=== PATIENT | male | born 1945 | race Caucasian/White ===

== ENCOUNTER 2016-07-03 05:34 | Day surgery (SDC) | payer OTHER ==
--- NOTE | 2016-07-02 13:27 | PREOPHP ---
DATE OF ADMISSION: 07/03/2016 HISTORY OF PRESENT ILLNESS: This 71-year-old patient is admitted for elective cataract surgery of t he left eye. The patient has had decreased vision in the left eye for approximately 1 year. The pa donnell denies prior history of eye disease or injury. He has sustained a stroke in 2007. The patien t is also being treated for hypercholesterolemia, hypertension, gout, and memory problems. CURRENT MEDICATIONS: Include: 1. Aspirin (discontinued 1 week prior to surgery. 2. Pravastatin. 3. Metoprolol. 4. Allopurinol. 5. Amlodipine. 6. Namenda. 7. Aricept. 8. Seroquel. ALLERGIES: THERE ARE NO KNOWN ALLERGIES. PHYSICAL EXAMINATION: Visual acuity with best correction is 20/60 in the right eye and hand motions vision in the left eye. Slit lamp examination reveals a moderate cataract in the right eye and a m ature cataract in the left eye. Applanation tonometry is 15 mmHg in both eyes. Examination of the retina is within normal limits in the right eye and is not visualized in the left eye due to the mat ure cataract. DIAGNOSIS: Mature cataract, left eye. PLAN: Cataract extraction with lens implant, left eye. The risks and alternatives to the surgery h ave been discussed with the patient and family as well as the inability to prognosticate visual outc ome due to the inability to visualize the retina in the left eye. The patient understands this and desires to proceed with surgery in hopes of improving visual acuity leading to a greater ability to perform activities of daily living. Dictated By: MARI TATUM/BILL Conf#: [id number] DID#: [id number]
[2016-07-02 13:45] VITALS: BMI 29.5
[2016-07-03] VITALS (8 sets, daily range): BP systolic 132–160; BP diastolic 75–95; PULSE 60–72; RESP 16–18; Ht 162.6 cm; Wt 81.6 kg
[~2016-07-03] VITALS: Ht 162.6 cm; Wt 81.6 kg
[2016-07-03] MEDS ORDERED: CYCLOPENTOLATE/PHENYLEPH 2 ML OPH OPER SCH (06:00)
[2016-07-03] MEDS ORDERED: DICLOFENAC 0.1% 2.5 ML OPH OPER SCH (06:00)
[2016-07-03] MEDS ORDERED: CIPROFLOXACIN 0.3% 2.5 ML OPH OPER SCH (06:00)
[2016-07-03] MEDS ORDERED: TROPICAMIDE 1% 2 ML OPH OPER SCH (06:00)
[2016-07-03] MEDS ORDERED: MEMA1CAP3 PO (07:29)
[2016-07-03] MEDS ORDERED: PRAV40TA76 PO (07:30)
[2016-07-03] MEDS ORDERED: LISI40TA9 PO (07:30)
[2016-07-03] MEDS ORDERED: AMLO-147 PO (07:30)
[2016-07-03] MEDS ORDERED: QUET25TA33 PO (07:31)
[2016-07-03] MEDS ORDERED: ALLO300T2 PO (07:31)
[2016-07-03] MEDS ORDERED: LIDOCAINE 100 MG SYRINGE ONE (07:47)
[2016-07-03] MEDS ORDERED: PROPOFOL 20 ML ONE (07:47)
[2016-07-03] MEDS ORDERED: ONDANSETRON 4 MG INJ IV PRN (08:00)
[2016-07-03] MEDS ORDERED: hydrALAzine 20 MG INJ IV PRN (08:00)
[2016-07-03] MEDS ORDERED: LABETALOL HCL 20MG INJ IV PRN (08:00)
[2016-07-03] MEDS ORDERED: MEPERIDINE 25 MG INJ IV PRN (08:00)
[2016-07-03] MEDS ORDERED: ATROPINE 1 MG/10 ML SYRINGE IV PRN (08:00)
[2016-07-03] MEDS ORDERED: DIPHENHYDRAMINE 50 MG INJ IV PRN (08:00)
[2016-07-03] MEDS ORDERED: OXYCODONE/ACETAMINOPHEN (5/325) TAB PO PRN ×2 (08:00)
[2016-07-03] MEDS ORDERED: morphine (1 MG/ML) 10ML SYRINGE IV PRN ×3 (08:00)
[2016-07-03] MEDS ORDERED: FENTAnyl 50 MCG/ML VIAL IV PRN ×2 (08:00)
[2016-07-03] MEDS ORDERED: HYDROmorphONE (0.2 MG/ML) 10ML SYG IV PRN ×3 (08:00)
[2016-07-03] MEDS ORDERED: MIDAZOLAM 1 MG/ML 2 ML INJ IV PRN (08:00)
[2016-07-03] MEDS ORDERED: EPHEDrine SULFATE 50 MG/5 ML SYG IV PRN (08:00)
[2016-07-03] MEDS ORDERED: LIDOCAINE 4% (MPF) 5 ML INJ ONE (08:07)
[2016-07-03] MEDS ORDERED: CARBACHOL 0.01% 1.5 ML OPH INJ ONE (08:07)
[2016-07-03] MEDS ORDERED: CEFAZOLIN 1 GM INJ ONE (08:07)
[2016-07-03] MEDS ORDERED: DEXAMETHASONE 4 MG/ML 1 ML INJ ONE (08:08)
[2016-07-03] MEDS ORDERED: EPINEPHrine 1 MG INJ ONE (08:08)
[2016-07-03] MEDS ORDERED: GENTAMICIN 80 MG INJ ONE (08:09)
[2016-07-03] MEDS ORDERED: HYALURONATE/CHONDROITIN 1ML OPH INJ ONE (08:09)
[2016-07-03] MEDS ORDERED: HYALURONATE/CHONDROITIN 1ML OPH INJ IO ONE (08:40)
[2016-07-03] MEDS ORDERED: CARBACHOL 0.01% 1.5 ML OPH INJ IO ONE (08:40)
[2016-07-03] MEDS ORDERED: DEXAMETHASONE 4 MG/ML 1 ML INJ INJ ONE (08:40)
[2016-07-03] MEDS ORDERED: CEFAZOLIN 1 GM INJ INJ ONE (08:40)
[2016-07-03] MEDS ORDERED: MIDAZOLAM 1 MG/ML 2 ML INJ ONE (08:53)
--- NOTE | 2016-07-03 09:41 | OPR ---
DATE OF OPERATION: 07/03/2016 PREOPERATIVE DIAGNOSIS: Mature cataract, left eye. POSTOPERATIVE DIAGNOSIS: Mature cataract, left eye. SURGEON: Mari Johnson MD MARKET DEVELOPMENT SPECIALIST: ANESTHESIA: Local standby. ANESTHESIOLOGIST: Dr. Palomino OPERATION: Cataract extraction with lens implant, left eye. DESCRIPTION OF PROCEDURE: The patient was brought to the operating room and placed on the table wit h an IV in place and the patient attached to an satellite project site monitor. Oxygen was given via face mask. After some intravenous sedation was administered, local anesthesia was given using Xylocaine 2% with epinephrine, mixed with Marcaine 0.5%. This was given in a lid block and retrobulbar injection. The patient was then prepped and draped in the usual sterile manner. A wire lid speculum was inserted between the lids of the left eye. A SuperBlade was used to enter th e anterior chamber at the corneoscleral limbus at the 10:30 o'clock position. A separate incision wa s made using a 3.0-mm keratome which entered the corneoscleral junction at the 12 o'clock position. Through this 3-mm opening, an irrigating cystotome was introduced into the anterior chamber. The esthela mber was filled with Viscoat and an anterior capsulotomy was performed. Balanced salt solution was t hen used for hydrodissection of the lens. A phacoemulsification handpiece was then brought into the field and introduced into the anterior chamber. Once the phacoemulsification was begun, the ultraso und setting was set to the higher setting due to the maturity of the cataract. The lens nucleus was emulsified using a deep groove and cracking the nucleus into quadrants. Following this, each quadra nt was aspirated and emulsified at the pupillary margin. After this was completed, the irrigation/aspiration handpiece was brought to the field, introduced i nto the posterior chamber, and the lens cortical material was removed. When this was completed, regina tional Viscoat was injected into the anterior and posterior chambers. The 3-mm opening had its internal lips enlarged, and then the posterior chamber intraocular lens gena suring 22.5 diopters ([employer] model LI61AO) was then injected into the posterior chamber using the lens injector system. After the leading haptic was introduced into the capsular b ag and the lens optic was present in the center of the eye, the injector was removed and the trailin g haptic was grasped with non-toothed forceps and introduced into the capsular fold superiorly. A Si nskey hook was then used to rotate the intraocular lens so that the lips were oriented in the horizo ntal meridian. One 10-0 nylon suture was placed across the wound. Prior to tying, the irrigation/aspiration handpiece was reintroduced into the anterior chamber to re move the Viscoat. Miochol was instilled to constrict the pupil, and then the 10-0 nylon suture was t ied. The ends were cut short and then the knot was buried. Then, 0.5 mL of dexamethasone and 0.5 mL of Ancef were injected into the sub-Tenon space in the infe rior fornix. Ciloxan drops were then placed on the surface of the eye. The speculum was removed and a patch was applied. The patient then left the operating room in satisfactory condition. Dictated By: MARI TATUM/BILL Conf#: [id number] DID#: [id number]
== END 2016-07-03 10:22 | disposition home or self-care (01) ==
LOC: SDS 05:34
PROVIDERS: ATTEND Ophthalmology
DX: H26.8 Other specified cataract (principal); E78.00 Pure hypercholesterolemia, unspecified; Z79.82 Long term (current) use of aspirin; Z86.73 Personal history of transient ischemic attack (TIA), and cerebral infarction without residual deficits
CPT/HCPCS: 66984; J0171; J0690; J1100; J1580; J2001; J2250; V2632

== ENCOUNTER 2016-10-16 06:09 | Day surgery (SDC) | payer OTHER ==
--- NOTE | 2016-10-08 09:25 | PREOPHP ---
DATE OF ADMISSION: 10/09/2016 HISTORY OF PRESENT ILLNESS: This 71-year-old patient is admitted for elective cataract surgery of t he right eye. The patient has had decreased vision in both eyes for the past year and 3 months ago underwent cataract surgery in the left eye with good visual result. The patient has a history of a CVA in 2007 and is currently being treated for hypercholesterolemia, hypertension, gout and memory p roblems. CURRENT MEDICATIONS: Include: 1. Aspirin (discontinued 1 week prior to surgery). 2. Pravastatin. 3. Metoprolol. 4. Allopurinol. 5. Amlodipine. 6. Namenda. 7. Aricept. 8. Seroquel. ALLERGIES: NO KNOWN ALLERGIES. PHYSICAL EXAMINATION: The visual acuity best corrected is 20/100 in the right eye and 20/25 in the left eye. Slit lamp examination reveals anterior cortical and nuclear sclerotic cataract in the rig ht eye. The left eye has a posterior chamber intraocular lens in appropriate position. Applanation tonometry is 17 mmHg in both eyes. Examination of the retina is within normal limits. DIAGNOSIS: Cataract, right eye. PLAN: Cataract extraction with lens implant, right eye. The risks and alternatives to the surgery have been discussed with the patient and patient has opted to proceed with surgery in hope of improv ing visual acuity leading to a greater ability to perform activities of daily living. Dictated By: MARI TATUM/BILL Conf#: [id number] DID#: [id number]
[~2016-10-16] VITALS: Ht 157.5 cm; Wt 79.3 kg
[2016-10-16] VITALS (7 sets, daily range): BP systolic 114–141; BP diastolic 71–88; PULSE 52–78; RESP 12–25; Ht 157.5 cm; Wt 79.3 kg
[~2016-10-16 06:09] MED LIST: ALLO300T2 PO; AMLO-147 PO; CARBACHOL 0.01% 1.5 ML OPH INJ ONE; CEFAZOLIN 1 GM INJ ONE; CIPROFLOXACIN 0.3% 2.5 ML OPH OPER SCH; CYCLOPENTOLATE/PHENYLEPH 2 ML OPH OPER SCH; DEXAMETHASONE 4 MG/ML 1 ML INJ ONE; DICLOFENAC 0.1% 2.5 ML OPH OPER SCH; EPINEPHrine 1 MG INJ ONE; GENTAMICIN 80 MG INJ ONE; HYALURONATE/CHONDROITIN 1ML OPH INJ ONE; LIDOCAINE 4% (MPF) 5 ML INJ ONE; LISI40TA9 PO; MEMA1CAP3 PO; PRAV40TA76 PO; QUET25TA33 PO; TROPICAMIDE 1% 2 ML OPH OPER SCH
[2016-10-16] MEDS ORDERED: CEFAZOLIN 1 GM INJ INJ ONE (06:48)
[2016-10-16] MEDS ORDERED: HYALURONATE/CHONDROITIN 1ML OPH INJ IO ONE (06:48)
[2016-10-16] MEDS ORDERED: CARBACHOL 0.01% 1.5 ML OPH INJ IO ONE (06:48)
[2016-10-16] MEDS ORDERED: DEXAMETHASONE 4 MG/ML 1 ML INJ INJ ONE (06:48)
[2016-10-16] MEDS ORDERED: PROPOFOL 200 MG INJ ONE (07:00)
[2016-10-16] MEDS ORDERED: MIDAZOLAM 1 MG/ML 2 ML INJ IV PRN (08:00)
[2016-10-16] MEDS ORDERED: MEPERIDINE 25 MG INJ IV PRN (08:00)
[2016-10-16] MEDS ORDERED: DIPHENHYDRAMINE 50 MG INJ IV PRN (08:00)
[2016-10-16] MEDS ORDERED: OXYCODONE/ACETAMINOPHEN (5/325) TAB PO PRN ×2 (08:00)
[2016-10-16] MEDS ORDERED: ONDANSETRON 4 MG INJ IV PRN (08:00)
[2016-10-16] MEDS ORDERED: METOCLOPRAMIDE 10 MG INJ IV PRN (08:00)
[2016-10-16] MEDS ORDERED: FENTAnyl 50 MCG/ML VIAL IV PRN ×2 (08:00)
--- NOTE | 2016-10-16 10:03 | OPR ---
DATE OF OPERATION: 10/16/2016 PREOPERATIVE DIAGNOSIS: Cataract, right eye. POSTOPERATIVE DIAGNOSIS: Cataract, right eye. PROCEDURE PERFORMED: Cataract extraction with lens implant, right eye. SURGEON: Mari Johnson MD ANESTHESIA: Mikel Lara MD ANESTHESIA: Local standby. PROCEDURE: The patient was brought to the operating room and placed on the table with an IV in plac e and the patient attached to an gang plank workman. Oxygen was given via face mask. After some intravenous sedation was administered, local anesthesia was given using Xylocaine 2% with epinephrine, mixed with Marcaine 0.5%. This was given in a lid block and retrobulbar injection. The patient was then prepped and draped in the usual sterile manner. A wire lid speculum was inserted between the lids of the right eye. A Superblade was used to enter the anterior chamber at the corneoscleral limbus at the 10:30 o'clock position. A separate incision was made using a 3.0-mm keratome which entered the corneoscleral junction at the 12 o'clock positio n. Through this 3-mm opening, an irrigating cystitome was introduced into the anterior chamber. The chamber was filled with Viscoat and an anterior capsulotomy was performed. Balanced salt solution wa s then used for hydrodissection of the lens. A phacoemulsification handpiece was then brought into the field and introduced into the anterior chamber. The lens nucleus was emulsified using a deep carmen ove and cracking the nucleus into quadrants. Following this, each quadrant was aspirated and emulsif ied at the pupillary margin. After this was completed, the irrigation/aspiration handpiece was brought to the field, introduced i nto the posterior chamber, and the lens cortical material was removed. When this was completed, regina tional Viscoat was injected into the anterior and posterior chambers. The 3-mm opening had its internal lips enlarged, and then the posterior chamber intraocular lens gena suring 21.5 diopters ([employer] model [id number]) was then injected into the posterior chamber using the lens injector system. After the leading haptic was introduced into the capsular b ag and the lens optic was present in the center of the eye, the injector was removed and the trailin g haptic was grasped with non-toothed forceps and introduced into the capsular fold superiorly. A Si nskey hook was then used to rotate the intraocular lens so that the lips were oriented in the horizo ntal meridian. One 10-0 nylon suture was placed across the wound. Prior to tying, the irrigation/aspiration handpiece was reintroduced into the anterior chamber to re move the Viscoat. Miochol was instilled to constrict the pupil, and then the 10-0 nylon suture was t ied. The ends were cut short and then the knot was buried. Then, 0.5 mL of dexamethasone and 0.5 mL of Ancef were injected into the sub-Tenon space in the infe rior fornix. Ciloxan drops were then placed on the surface of the eye. The speculum was removed and a patch was applied. The patient then left the operating room in satisfactory condition. Dictated By: MARI TATUM/BILL Conf#: [id number] DID#: [id number]
== END 2016-10-16 09:13 | disposition home or self-care (01) ==
LOC: SDS 06:09
PROVIDERS: ATTEND Ophthalmology
DX: H25.11 Age-related nuclear cataract, right eye (principal); I10 Essential (primary) hypertension; E78.5 Hyperlipidemia, unspecified; F03.90 Unspecified dementia, unspecified severity, without behavioral disturbance, psychotic disturbance, mood disturbance, and anxiety; Z79.82 Long term (current) use of aspirin
CPT/HCPCS: 66984; J0171; J0690; J1100; J1580; V2632

== ENCOUNTER → 2017-02-04 | Outpatient (CLI) | payer OTHER ==
[~2017-02-04] MED LIST changes: -CARBACHOL 0.01% 1.5 ML OPH INJ ONE; -CEFAZOLIN 1 GM INJ ONE; -CIPROFLOXACIN 0.3% 2.5 ML OPH OPER SCH; -CYCLOPENTOLATE/PHENYLEPH 2 ML OPH OPER SCH; -DEXAMETHASONE 4 MG/ML 1 ML INJ ONE; -DICLOFENAC 0.1% 2.5 ML OPH OPER SCH; -EPINEPHrine 1 MG INJ ONE; -GENTAMICIN 80 MG INJ ONE; -HYALURONATE/CHONDROITIN 1ML OPH INJ ONE; -LIDOCAINE 4% (MPF) 5 ML INJ ONE; -TROPICAMIDE 1% 2 ML OPH OPER SCH
== END | disposition home or self-care (01) ==
LOC: RAD 10:14
PROVIDERS: ATTEND Ophthalmology
DX: H26.9 Unspecified cataract (principal)
CPT/HCPCS: 66821